=== PATIENT | male | born 1945 | race Asian ===

== ENCOUNTER → 2018-03-12 | Emergency (ER) | payer OTHER | END | disposition home or self-care (01) | LOC: E/R 18:01 | DX: R58 Hemorrhage, not elsewhere classified (principal); I10 Essential (primary) hypertension; Z79.01 Long term (current) use of anticoagulants; Z79.82 Long term (current) use of aspirin; Z86.73 Personal history of transient ischemic attack (TIA), and cerebral infarction without residual deficits | CPT/HCPCS: 12001; 99282-25 ==